=== PATIENT | female | born 1940 | race Caucasian/White ===

== ENCOUNTER 2016-12-31 07:21 | Emergency (ER) | payer MEDICARE, BC ==
[~2016-12-31] VITALS: Ht 170.2 cm; Wt 75.0 kg
[~2016-12-31 07:21] MED LIST: ACET325T33 PO; LEVO100T87 PO; VERA120T2
[2016-12-31] MEDS ORDERED: HYDROmorphONE 1 MG/ML SYG IV STA (08:00)
[2016-12-31] MEDS ORDERED: ONDANSETRON 4 MG INJ IV STA ×2 (08:00→14:59)
[2016-12-31 08:37] LABS: ADD SCAN DIFF NO
[2016-12-31 08:39] LABS: BASOPHILS % 0.4 % (0.0-2.0); EOSINOPHILS # 0.1 10^3/ul (0.0-0.5); EOSINOPHILS % 2.7 % (0.0-7.0); HEMATOCRIT 34.1 % (37.0-47.0); HEMOGLOBIN 11.2 g/dl (12.0-16.0); LYMPHOCYTES # 1.3 10^3/ul (0.8-2.9); LYMPHOCYTES % 25.4 % (15.0-51.0); MEAN CORPUSCULAR HEMOGLOBIN 30.1 pg (29.0-33.0); MEAN CORPUSCULAR HGB CONC 32.8 g/dl (32.0-37.0); MEAN CORPUSCULAR VOLUME 91.7 fl (82.0-101.0); MEAN PLATELET VOLUME 10.2 fl (7.4-10.4); MONOCYTE # 0.3 10^3/ul (0.3-0.9); MONOCYTES % 5.5 % (0.0-11.0); NEUTROPHIL # 3.5 10^3/ul (1.6-7.5); NEUTROPHILS % 65.8 % (39.0-77.0); PLATELET COUNT 155 10^3/UL (140-415); RED BLOOD COUNT 3.72 10^6/ul (4.20-5.40); RED CELL DISTRIBUTION WIDTH 12.7 % (11.5-14.5); WHITE BLOOD COUNT 5.3 10^3/ul (4.8-10.8)
[2016-12-31] MEDS ORDERED: VERA120T2 PO (08:45)
[2016-12-31 08:49] LABS: INR 0.98
[2016-12-31 08:50] LABS: ALBUMIN 3.7 g/dl (3.3-4.9); CHLORIDE 105 mmol/L (97-110); SODIUM 140 mmol/L (135-144)
[2016-12-31 08:51] LABS: POTASSIUM 4.2 mmol/L (3.5-5.1)
[2016-12-31 08:52] LABS: CREATININE 0.71 mg/dl (0.44-1.00)
[2016-12-31 08:53] LABS: ALANINE AMINOTRANSFERASE 34 IU/L (13-69); ALBUMIN/GLOBULIN RATIO 1.15; ALKALINE PHOSPHATASE 77 IU/L (42-121); ANION GAP 15 (8-16); ASPARTATE AMINO TRANSFERASE 41 IU/L (15-46); BILIRUBIN,INDIRECT 0.5 mg/dl (0-1.1); BILIRUBIN,TOTAL 0.5 mg/dl (0.2-1.3); BLOOD UREA NITROGEN 12 mg/dl (7-20); CARBON DIOXIDE 24 mmol/L (21-31); CREATINE KINASE 65 IU/L (23-200); GLUCOSE 143 mg/dl (70-220); TOTAL PROTEIN 6.9 g/dl (6.1-8.1)
[2016-12-31 08:54] LABS: CALCIUM 9.2 mg/dl (8.4-10.2)
[2016-12-31 09:01] LABS: CK-MB 0.33 ng/ml (0.0-2.4)
[2016-12-31 09:10] LABS: TROPONIN-I < 0.012 ng/ml (0.00-0.12)
--- NOTE | 2016-12-31 09:18 | RADRPT ---
PROCEDURE: XR Chest. CLINICAL INDICATION: Chest pain TECHNIQUE: Chest AP portable. COMPARISON: 08/02/2015 FINDINGS: Surgical clips in the left breast. The mediastinal structures are unremarkable. There is calcification of the thoracic aorta (consiste nt with atherosclerosis). There is mild cardiomegaly. The pulmonary vascularity is normal. The geoff ng [place] are unremarkable. No consolidation is identified. The pleural spaces are unremarkable. There are senescent changes of the axial skeleton. IMPRESSION: Calcification of the thoracic aorta (consistent with atherosclerosis) Mild cardiomegaly No active intrathoracic disease RPTAT: HGDB .Gómez Preciado MD, Date Time Electronically viewed and signed by .Gómez Preciado MD, on 12/31/2016 09:18 .B/
--- NOTE | 2016-12-31 09:30 | RADRPT ---
PROCEDURE: CT Abdomen and Pelvis without contrast. CLINICAL INDICATION: Abdominal pain TECHNIQUE: CT of the abdomen and pelvis was performed on a multi-detector scanner without IV contr ast. Coronal and sagittal images were reformatted from the axial data set. One or more of the foll owing dose reduction techniques were used: automated exposure control, adjustment of the mA and/or kV according to patient size, use of iterative reconstruction technique. CTDI = 21.91 mGy. DLP = 12 95.34 mGy-cm. COMPARISON: None. FINDINGS: CT abdomen: The lung bases are clear. The heart size is normal, without pericardial effusion. Coronary arteria l calcification is noted. Liver demonstrates scattered benign cysts. Cholelithiasis is seen withou t evidence for cholecystitis. Biliary tree, pancreas, spleen, adrenal glands and kidneys are unrema rkable. There is no urolithiasis or obstructive uropathy. The stomach is grossly unremarkable. The aorta is of normal caliber. Aortic vascular calcifications are present. There is no retroperit montiel lymphadenopathy. The weston hepatis region is clear. CT pelvis: No bowel obstruction, free intraperitoneal air or abscess is identified. Colonic diverticulosis is noted without diverticulitis. There is no appendicitis or colitis. Urinary bladder is grossly unre markable. Uterus is surgically absent. No pelvic mass, free fluid or lymphadenopathy is identified . The surrounding osseous structures are remarkable for degenerative spondylosis of the spine. No ost eolytic or osteoblastic lesion is detected. IMPRESSION: 1. Cholelithiasis is noted without evidence for cholecystitis. 2. Coronary arterial and aortoiliac atherosclerotic calcifications are present. 3. Colonic diverticulosis is seen without diverticulitis. 4. Uterus is surgically absent. 5. No mass, lymphadenopathy, or focal acute inflammatory process is identified. RPTAT: PP .Montrell Velez MD, MD Date Time Electronically viewed and signed by .Montrell Velez MD, MD on 12/31/2016 09:30 .R/
[2016-12-31] MEDS ORDERED: SOD CHLORIDE 0.9% 1,000 ML IV STA (10:14)
[2016-12-31] MEDS ORDERED: METOCLOPRAMIDE 10 MG INJ IV STA (10:14)
[2016-12-31 11:40] LABS: ADD UMIC YES; URINE BILIRUBIN (Dip) NEGATIVE (NEGATIVE); URINE BLOOD (Dip) NEGATIVE (NEGATIVE); URINE COLOR LT. YELLOW (YELLOW); URINE GLUCOSE (Dip) NEGATIVE (NEGATIVE); URINE KETONES (Dip) NEGATIVE (NEGATIVE); URINE LEUKOCYTE ESTERASE (Dip) 3+ (NEGATIVE); URINE NITRITE (Dip) NEGATIVE (NEGATIVE); URINE TOTAL PROTEIN (Dip) NEGATIVE (NEGATIVE); URINE UROBILINOGEN (Dip) 0.2 E.U./dL (0.1-1.0)
[2016-12-31 11:52] LABS: BACTERIA,URINE FEW; SQUAMOUS EPITHELIAL CELL,UR MODERATE; URINE RBCS NONE SEEN /HPF (0)
[2016-12-31] MEDS ORDERED: SOD CHLORIDE 0.9% 100 ML ONE (14:06)
[2016-12-31] MEDS ORDERED: IODIXANOL LOCM 100 ML BTL ONE ×2 (14:06→14:30)
[2016-12-31] MEDS ORDERED: IODIXANOL LOCM 50 ML BTL ONE (14:08)
--- NOTE | 2016-12-31 15:16 | ERA ---
ER Documentation Chief Complaint Date/Time DATE: 12/31/16 TIME: 15:10 Chief Complaint BROUGHT IN VIA EMS DUE TO CHEST PAIN HPI 76-year-old female with a history of uterine cancer status post hysterectomy, hypertension and hypothyroidism presenting with severe upper abdominal pain since this morning. She states the pain was radiating into her chest and into her back. She has had associated nausea with nonbloody and nonbilious vomiting. She denies any dysuria, hematuria, constipation, diarrhea. No associated fevers or chills. ROS All systems reviewed and are negative except as per history of present illness. Medications Home Meds Reported Medications Verapamil Hcl* (Calan SR*) 120 Mg Tablet.sa, 120 MG PO DAILY, #30 TAB.SA 12/31/16 Levothyroxine Sodium* (Levothyroxine Sodium*) 100 Mcg Tablet, 100 MCG PO AC BREAKFAST, TAB 08/02/15 Discontinued Reported Medications Verapamil Hcl* (Calan SR*) 120 Mg Tablet.sa 07/08/10 Discontinued Scripts Acetaminophen* (Tylenol*) 325 Mg Tablet, 2 TAB PO Q8 Y for PAIN AND OR ELEVATED TEMP, #20 TAB Prov:BRENDON LOVELL MD 08/02/15 Allergies Allergies: Coded Allergies: Penicillins (Verified Allergy, Severe, 12/31/16) Sulfa (Sulfonamide Antibiotics) (Verified Allergy, Unknown, 12/31/16) clarithromycin (Verified Allergy, Unknown, 12/31/16) PMhx/Soc History of Surgery: Yes (lumpectomies. left breast mastectomy, nasal fracture repair, hysterectomy) Anesthesia Reaction: No Hx Neurological Disorder: No Hx Respiratory Disorders: Yes (" SCARRING" OF LUNG. UNKNOWN WHICH SIDE) Hx Cardiac Disorders: Yes (HTN, SVT) Hx Psychiatric Problems: No Hx Miscellaneous Medical Probl: Yes (breast cancer, uterine cancer) Hx Alcohol Use: No Hx Substance Use: No Hx Tobacco Use: Yes Smoking Status: Former smoker Physical Exam Vitals Vital Signs Date Time Temp Pulse Resp B/P Pulse Ox O2 Delivery O2 Flow Rate FiO2 12/31/16 13:30 78 18 129/78 98 Nasal Cannula 2.0 12/31/16 10:00 89 18 110/87 98 Nasal Cannula 2.0 12/31/16 08:42 Nasal Cannula 12/31/16 07:23 98.2 82 18 141/75 98 Physical Exam Const: Appears to be in distress secondary to pain, nontoxic Head: Atraumatic Eyes: Normal Conjunctiva ENT: Normal External Ears, Nose and Mouth. Neck: Full range of motion..~ No meningismus. Resp: Clear to auscultation bilaterally Cardio: Regular rate and rhythm, no murmurs Abd: Soft, epigastric tenderness to palpation with localized guarding, no rebound, non distended. Normal bowel sounds Skin: No petechiae or rashes Back: No midline or flank tenderness Ext: No cyanosis, or edema Neur: Awake and alert Psych: Normal Mood and Affect Result Diagram: 12/31/16 0755 12/31/16 0755 Results 24 hrs Laboratory Tests Test 12/31/16 07:55 12/31/16 11:00 White Blood Count 5.310^3/ul Red Blood Count 3.7210^6/ul Hemoglobin 11.2g/dl Hematocrit 34.1% Mean Corpuscular Volume 91.7fl Mean Corpuscular Hemoglobin 30.1pg Mean Corpuscular Hemoglobin Concent 32.8g/dl Red Cell Distribution Width 12.7% Platelet Count 14636^3/UL Mean Platelet Volume 10.2fl Neutrophils % 65.8% Lymphocytes % 25.4% Monocytes % 5.5% Eosinophils % 2.7% Basophils % 0.4% Nucleated Red Blood Cells % 0.0/100WBC Neutrophils # 3.510^3/ul Lymphocytes # 1.310^3/ul Monocytes # 0.310^3/ul Eosinophils # 0.110^3/ul Basophils # 0.010^3/ul Nucleated Red Blood Cells # 0.010^3/ul Prothrombin Time 13.0Sec Prothrombin Time Ratio 1.0 INR International Normalized Ratio 0.98 Activated Partial Thromboplast Time 20.0Sec Sodium Level 140mmol/L Potassium Level 4.2mmol/L Chloride Level 105mmol/L Carbon Dioxide Level 24mmol/L Anion Gap 15 Blood Urea Nitrogen 12mg/dl Creatinine 0.71mg/dl Glucose Level 143mg/dl Calcium Level 9.2mg/dl Total Bilirubin 0.5mg/dl Direct Bilirubin 0.00mg/dl Indirect Bilirubin 0.5mg/dl Aspartate Amino Transf (AST/SGOT) 41IU/L Alanine Aminotransferase (ALT/SGPT) 34IU/L Alkaline Phosphatase 77IU/L Creatine Kinase 65IU/L Creatine Kinase Index 0.5 Creatinine Kinase MB (Mass) 0.33ng/ml Troponin I < 0.012ng/ml Total Protein 6.9g/dl Albumin 3.7g/dl Globulin 3.20g/dl Albumin/Globulin Ratio 1.15 Lipase 105U/L Urine Color LT. YELLOW Urine Clarity CLEAR Urine pH 7.0 Urine Specific Marion 1.015 Urine Ketones NEGATIVE Urine Nitrite NEGATIVE Urine Bilirubin NEGATIVE Urine Urobilinogen 0.2 E.U./dL Urine Leukocyte Esterase 3+ Urine Microscopic RBC NONE SEEN/HPF Urine Microscopic WBC 5-10/HPF Urine Squamous Epithelial Cells MODERATE Urine Bacteria FEW Urine Hemoglobin NEGATIVE Urine Glucose NEGATIVE% Urine Total Protein NEGATIVE Current Medications Medications (Trade) Dose Ordered Sig/Tia Route PRN Reason Start Time Stop Time Status Last Admin Dose Admin Hydromorphone HCl (Dilaudid) 0.5 mg ONCE STAT IV 12/31/16 08:00 12/31/16 08:01 DC 12/31/16 08:38 Ondansetron HCl 4 mg 4 mg ONCE STAT IV 12/31/16 08:00 12/31/16 08:01 DC 12/31/16 08:37 Sodium Chloride (NS) 1,000 ml @ 1,000 mls/hr Q1H STAT IV 12/31/16 10:14 12/31/16 11:13 DC 12/31/16 10:30 Metoclopramide HCl (Reglan) 10 mg ONCE STAT IV 12/31/16 10:14 12/31/16 10:16 DC 12/31/16 10:30 IV Flush 10 ml 10 ml STK-MED ONCE .ROUTE 12/31/16 14:06 12/31/16 14:07 DC 12/31/16 14:06 Sodium Chloride (NS) 100 ml @ ud STK-MED ONCE .ROUTE 12/31/16 14:06 12/31/16 14:07 DC Iodixanol (Visipaque Locm) 100 ml STK-MED ONCE .ROUTE 12/31/16 14:06 12/31/16 14:07 DC Iodixanol (Visipaque Locm) 50 ml STK-MED ONCE .ROUTE 12/31/16 14:08 12/31/16 14:09 DC Iodixanol (Visipaque Locm) 100 ml STK-MED ONCE .ROUTE 12/31/16 14:30 12/31/16 14:31 DC Ondansetron HCl (Zofran Inj) 4 mg ONCE STAT IV 12/31/16 14:59 12/31/16 15:00 DC 12/31/16 15:08 Procedures/MDM EMERGENT LABS AND DIAGNOSTIC STUDIES: Lab Results above were reviewed and interpreted by me. CBC, CMP, lipase, troponin unremarkable UA with 3+ leuk esterase, however only few WBCs and many squamous cells 12-lead EKG was interpreted by Chantel Salcedo MD: Sinus bradycardia at 47 bpm Normal axis Normal intervals No acute ST or T wave changes suggestive of acute ischemia or STEMI. Radiology Results as interpreted by Radiology below were reviewed by Ivy Salcedo MD: Chest x-ray: Calcification of the thoracic aorta (consistent with atherosclerosis) Mild cardiomegaly No active intrathoracic disease CT abdomen and pelvis: 1. Cholelithiasis is noted without evidence for cholecystitis. 2. Coronary arterial and aortoiliac atherosclerotic calcifications are present. 3. Colonic diverticulosis is seen without diverticulitis. 4. Uterus is surgically absent. 5. No mass, lymphadenopathy, or focal acute inflammatory process is identified. CT Angio C/A/P: Initial Nursing notes reviewed. Previous Medical Records requested via the Electronic Health Record. EMERGENCY DEPARTMENT COURSE / MEDICAL DECISION MAKING: Patient is presenting with upper abdominal pain with nausea and vomiting. She has afebrile with stable vitals. Differential includes but is not limited to biliary colic, biliary obstruction, acute cholecystitis, pancreatitis, hepatitis , lower lobe pneumonia, gastritis, colitis, cardiac pathology, aortic dissection , ureterolithiasis, pyelonephritis. Labs were ordered to evaluate for above and were normal. Chest Xray ordered to evaluate for pneumonia and did not show any acute infiltrate. CT of the abdomen/pelvis was ordered and showed no acute pathology. Hydromorphone IV was given for pain with some symptomatic relief. She was given Zofran and Reglan for her vomiting. IV fluids were also given. Given her persistent symptoms, CTA of the chest abdomen and pelvis were ordered given her age and history of hypertension, and results are still pending. Given her intractable abdominal pain and vomiting, I will admit the patient for IV fluids and serial abdominal exams. Accepting Care Team: Current data and ongoing care discussed. Time: Time of admission Primary Provider: Leonides Consulting: none Outstanding Data: none Departure Diagnosis: Primary Impression: Intractable nausea and vomiting Qualified Code: R11.2 - Intractable vomiting with nausea, unspecified vomiting type Additional Impression: Intractable abdominal pain Condition: BERENICE Cohen MD Dec 31, 2016 15:16
--- NOTE | 2016-12-31 15:25 | RADRPT ---
PROCEDURE: CT Chest, abdomen and pelvis with contrast. CLINICAL INDICATION: 76-year-old male with suspected vascular dissection. TECHNIQUE: Thin section axial, coronal and sagittal images were performed through the abdomen and pelvis without contrast and then following the injection of 100 cc of Isovue 370. Radiation Dose: CTDI: 21.9 and DLP: 1295 One or more of the following dose reduction techniques were used: - Automated exposure control. - Adjustment of the mA and/or kV according to patient size. Use of iterative reconstruction technique. COMPARISON: CT scan of the abdomen pelvis 12/31/2016 performed at 09:22 a.m. FINDINGS: CT Chest: The common carotid arteries are normal. The right left subclavian arteries are unremarka ble. The innominate artery is slightly tortuous and dense vascular calcifications but no dissection . There are vascular calcifications in the aortic arch and descending thoracic aorta. The transverse diameter at the root of the aorta is 6.5 cm x 4 cm AP. There is a bilobed configurat ion of the root of the aorta a small eccentric aneurysm extending off the dorsal left side of the ro ot of the aorta. The heart is normal in size. No pericardial effusion is identified. There are vascular calcifications in the descending thoracic aorta which is normal in size. There a re vascular calcifications in the abdominal aorta. The celiac artery, superior mesenteric artery, r enal arteries and inferior mesenteric artery are patent. There are vascular calcifications in the c ommon iliac arteries. The internal and external iliac arteries are patent with vascular calcificati ons present. The common femoral arteries, profunda femoris and superficial femoral arteries are unr emarkable. No enlarged supraclavicular, superior mediastinal, axillary or hilar lymph nodes are identified. Th ere is a calcified lymph node medial to the azygos vein. The main pulmonary artery and pulmonary artery outflow tracts are normal with no central or segmenta l pulmonary emboli identified. There are vascular calcifications in the left main and descending coronary arteries. CT Abdomen and pelvis : The liver is identified in the right upper quadrant and contains multiple l esions which appear to be the result of cysts. Some of these are too small to fully characterize by CT. Further characterization with ultrasound can be performed if clinically indicated. There are multiple calcifications in the gallbladder consistent with small gallstones. No gallbladd er wall thickening is identified. The pancreas extrahepatic common bile duct are normal. The adrenal glands and kidneys are normal. There is a small midline umbilical hernia. The spleen is normal. There is a small hiatal hernia. The stomach is normal. The small bowel loops have a normal caliber . There are diverticula in the sigmoid colon without evidence of diverticulitis. No free fluid is noted in the pelvis. The uterus is not identified. The ovaries are not identified. No abnormal pelvic mass is present. No inguinal lymph node is identified. No acute bony fracture is noted. There are degenerative changes in both hips and in the thoracic an d lumbosacral spine. No bone metastasis is noted. IMPRESSION: 1. There is aneurysmal dilatation of the root of the aorta which measured up to 6.5 cm transverse b y 4 cm AP with a saccular aneurysm or pseudoaneurysm arising off the dorsal inferior wall of the [place] t of the aorta. The abdominal aorta and its branches reveal no evidence of a aortic aneurysm or diss ection. Atherosclerotic vascular disease is noted. 2. Atherosclerotic vascular disease which also involves the coronary arteries. 3. Calcified azygos lymph node which may be the result of a granulomatous process, perhaps TB. 4. No central or segmental pulmonary emboli. 5. Fatty infiltration of the liver which contains multiple lesions which appear to be cysts. Some are too small to characterize by CT and can be further investigated if clinically indicated with an ultrasound. 6. Cholelithiasis. 7. Status post hysterectomy and salpingo-oophorectomy. 8. Small midline umbilical hernia. 9. Diverticulosis of the sigmoid colon. No evidence of diverticulitis. 10. Osteoarthritis of the thoracic and lumbosacral spine. 11. Moderate size hiatal hernia which is unchanged. RPTAT:AAJJ Physician Fernanda Date Time Electronically viewed and signed by Physician Fernanda on 12/31/2016 15:24 SILVER/
[2016-12-31] MEDS ORDERED: ONDANSETRON 4 MG INJ IV PRN ×2 (15:30→17:00)
[2016-12-31] MEDS ORDERED: ACETAMINOPHEN 325 MG TAB PO PRN ×2 (15:30→17:00)
[2016-12-31] MEDS ORDERED: KETOROLAC 15 MG INJ IV STA (16:27)
[2016-12-31] MEDS ORDERED: LEVOFLOXACIN 500MG/D5W (PMX) 100 ML IVPB SCH (16:30)
[2016-12-31] MEDS ORDERED: DEXTROSE 5%-0.45% NACL 1,000 ML IV SCH (17:00)
--- NOTE | 2016-12-31 18:30 | RADRPT ---
PROCEDURE: Right Upper Quadrant Ultrasound. CLINICAL INDICATION: liver cysts TECHNIQUE: Multiple real-time images were acquired of the patient's right upper quadrant abdomen a nd retroperitoneum utilizing a high resolution transducer. COMPARISON: CTA chest/abdomen/pelvis from 12/31/2016 FINDINGS: The liver measures 16.3 cm, and demonstrates moderately increased echogenicity. The main portal vein is patent with proper directional flow. There is no intrahepatic biliary ductal dilatation. The ext rahepatic common bile duct measures 6 mm. Multiple simple hepatic cysts are identified measuring up to 3.1 cm. There is cholelithiasis. There is no gallbladder wall thickening or pericholecystic fluid. Sonogra phic Edwards's sign is absent. The visualized pancreas is unremarkable. The right kidney measures 10.3 cm and demonstrates normal echotexture. There is no right renal calcu karlo or hydronephrosis. The visualized abdominal aorta and IVC are grossly unremarkable. IMPRESSION: Multiple simple hepatic cysts are identified measuring up to 3.1 cm. Mild hepatomegaly with moderate fatty infiltration. Cholelithiasis without evidence of acute cholecystitis. Normal CBD. RPTAT: EE Physician Jackie Date Time Electronically viewed and signed by Physician Jackie on 12/31/2016 18:30 RA/
--- NOTE | 2016-12-31 18:51 | CONS ---
DATE OF ADMISSION: 12/31/2016 DATE OF CONSULTATION: 12/31/2016 TYPE OF CONSULTATION: Cardiology. REASON FOR CONSULTATION: Chest pain. CHIEF COMPLAINT: Chest pain. HISTORY OF PRESENT ILLNESS: Thank you for this referral. History obtained from the patient, ninfa bahena with Dr. Mcnulty, discussion with physician and staff. This is a very pleasant 76-year-old female with history of "SVT" on medical therapy, verapamil, who came to emergency room. Was brought by the family with above complaint. The patient said that today she had chest pain anteriorly, pressure-l adriana, 5/10, going to her back. She has a known history of probably abdominal aortic aneurysm; raphael zimmerman, the CT of the chest has shown saccular dilatation of the aortic root, which was measured at 6.4 c m. At this point, the patient denies any chest pain or pressure to me. Initially, she was bradycar dic. EKG showed heart rate in the 40s; however, since then heart rate has picked up to 80s now. Sh piedad states that she had a stress nuclear test done at [facility] in 07/2016, which was told it w as normal and was done prior to her gynecological surgeries. PAST MEDICAL HISTORY: History of hypothyroidism, history of abdominal aortic aneurysm, history of p ossible hypertension, history of SVT per her report. MEDICATIONS AT HOME: 1. Verapamil SR 120 mg daily. 2. Levothyroxine. SOCIAL HISTORY: Does not smoke or drink. ALLERGIES: 1. PENICILLIN. 2. SULFA. 3. CLARITHROMYCIN. FAMILY HISTORY: The patient's uncle had coronary artery disease. REVIEW OF SYSTEMS: She denied all other except for above-mentioned. PHYSICAL EXAMINATION: VITAL SIGNS: Temperature 98.2, heart rate of 89, blood pressure 151/81, respiration rate of 18, sat urating 98%. HEENT: Normocephalic, atraumatic. Obese female. Pupils are equal. CARDIOVASCULAR: Regular rate and rhythm. Systolic murmur. PULMONARY: With no wheezes heard. GASTROINTESTINAL: Obese, soft, nontender. EXTREMITIES: With trivial lower extremity edema. NEUROLOGIC: Awake and alert. PSYCHIATRIC: Appears to be calm and pleasant. DIAGNOSTIC DATA: EKG shows marked sinus bradycardia, nonspecific ST abnormalities. LABORATORY DATA: Sodium 140, potassium 4.2, BUN of 12, creatinine 0.71, glucose 141. Troponin less than 0.012. Albumin is 3.7. WBC of 5.3, hemoglobin 11.2, platelet 155. CT of the chest has shown "aneurysmal dilatation at the root of the aorta, which measured up to 6.5 cm transverse by 4 cm AP with saccular aneurysm or pseudoaneurysm arising from off of the dorsal inferior wall of the root of the aorta. Abdominal aorta branches reveal no evidence of aortic aneurysm or dissection." ASSESSMENT AND PLAN: 1. Chest pain syndrome, rule acute coronary syndrome. 2. Saccular aneurysm of the aortic root. 3. Hypertension. 4. History of supraventricular tachycardia, currently in sinus rhythm. 5. Sinus bradycardia, currently stable. 6. Mildly abnormal EKG. 7. Hypothyroidism. RECOMMENDATIONS: I will start the patient on carvedilol. CT surgeon has been consulted. We will r ule out myocardial infarction with serial cardiac enzymes. Stress test apparently has been normal b efore. We will try to get the record of the stress test as well. Will consider CT coronary angiogr am if CT surgery plans to take the patient to the operating room. Continue to monitor her heart rat e. Try to keep the heart rate in the low 50s and blood pressure as low as the patient can tolerate. Dictated By: KESHIA COOLEY MD AV/ATTILA Conf#: [id number] DID#: [id number] CC: NICOLE MCNULTY MD;*End*
[2016-12-31 19:33] VITALS: PULSE 85
[2016-12-31 19:37] VITALS: PULSE 40
[2016-12-31 19:55] VITALS: BP 142/80; PULSE 81; RESP 22
--- NOTE | 2016-12-31 20:18 | HP ---
DATE OF ADMISSION: 12/31/2016 PRESENTING COMPLAINT: Chest pain. HISTORY OF PRESENT ILLNESS: Ms. Edwards is a 76-year-old female in a fairly good state of health wi th a past medical history only of SVT as well as uterine cancer status post hysterectomy as well as hypothyroidism who was in her normal state of health until 3:00 a.m. this morning when she was awoke n from sleep with very uncomfortable, diffuse chest pain, which radiated all across her anterior balb[address] st wall. The patient thought pain was due to gas and took some hyoscine tablets, but pain did not r esolve. Instead, radiated towards her back and affected her severely in her mid back. Pain then be oswaldo radiating downwards to her mid abdominal area, but there was no diarrhea. The pain got worse, m ore severe, and eventually the patient could not take it and she called the ambulance to bring her t o the emergency room. In the emergency room, she had had an episode of vomiting, and so she was med icated for the pain with IV Dilaudid, after which she had a large bout of vomiting and she remains n auseous now, but without any further vomiting. She attributes the vomiting to the pain medication. She has had no fever. She has had no diarrhea. She denies dysuria or hematuria. She denies black stools or blood in her stools. She had a good bowel movement yesterday and had a little one this m orning when her symptoms started, but does not feel constipated. She did have some ham yesterday, w hich is a deviation from her usual diet, in celebration of [place]. Other than that, she cannot real ly note any abnormalities or changes in her diet. PAST MEDICAL HISTORY: Positive for chronic SVT for which she has been on verapamil at 125 mg daily for more than 20 years, history of uterine cancer for which she is status post laparoscopic hysterec susanna back in 07/2016 prior to which she reports having a normal stress test. She also has chronic a bdominal aneurysm that she states measures in the 4 cm and a history of hypothyroidism for which she is on Synthroid 100 mcg daily. PAST SURGICAL HISTORY: Summarized above. ALLERGIES: PENICILLIN, SULFA, TETRACYCLINE, AND BIAXIN. REVIEW OF SYSTEMS: A 12-point review of systems and pertinent findings are as noted in HPI. FAMILY HISTORY: Positive for diabetes mellitus. SOCIAL HISTORY: The patient denies tobacco, alcohol, or illicit drug use. PHYSICAL EXAMINATION: VITAL SIGNS: Temperature 98.2, pulse 78, respirations 18, blood pressure 129/70, saturations 98% on oxygen via nasal cannula at 2 liters a minute. ELECTROCARDIOGRAM: She had a sinus bradycardia without ST elevations of or ____ depression. HEENT: Head is normocephalic. Pupils are equal and reactive. Mucous membranes were quite dry. Po sterior pharynx was clear of exudate. NECK: Supple without JVD or adenopathy. CHEST: Clear to auscultation. CARDIOVASCULAR: S1 and S2. No murmurs. ABDOMEN: Soft, nontender, nondistended, normoactive bowel sounds. EXTREMITIES: She had no lower extremity edema. NEUROLOGIC: She had no focal deficits. SKIN: Devoid of rash and jaundice. LABORATORY VALUES: Her complete metabolic profile was completely normal. First troponin negative. Lipase level normal. Hematology: Hemoglobin was 11, hematocrit was 34. Other than that, she had normal indices and the rest of her profile was unremarkable. Coag profile was normal. Urine was po sitive for UTI with 3+ esterase, 5 to 10 white cells, few bacteria. IMAGING: She had multiple imaging studies. 1. Chest x-ray shows calcification of the thoracic aorta consistent with atherosclerosis without ac tive intrathoracic disease. 2. CT of the abdomen and pelvis that showed cholelithiasis without cholecystitis, coronary artery c alcifications, diverticulosis, hysterectomy, and no acute mass or inflammatory process. 3. She had a CT of the abdomen, chest, and pelvis with IV contrast that showed aneurysmal dilatatio n of the root of the aorta measuring up to 6.5 x 4 without evidence of dissection, atherosclerotic d isease, fatty liver, which contains multiple lesions which appear to be cysts, status post hysterect marivel and salpingo-oophorectomy, small midline umbilical hernia, diverticulosis of the colon without d iverticulitis, osteoarthritis, and chronic moderate size hiatal hernia. IMPRESSION: A 76-year-old female who had come in because of diffuse anterior chest wall pain radiat ing to her back, now with the followin. Chest pain, rule out acute coronary syndrome. 2. Chronic supraventricular tachycardia, which is well controlled. 3. Chronic abdominal aortic aneurysm with new finding of thoracic aortic aneurysm at the root of th e aorta measuring 6.5 x 4 cm. 4. Chronic hypothyroidism. 5. Recent diagnosis of uterine cancer, status post total hysterectomy and salpingo-oophorectomy, , with recent visit postop status post Pap smear of stump. 6. High blood pressure with good control. 7. Probable urinary tract infection, which could lead to her symptoms. 8. Nausea, vomiting, which could be secondary to urinary tract infection. PLAN: 1. The patient to be admitted to telemetry floor. We will rule out an acute coronary syndrome. 2. Will get cardiology as well as cardiothoracic consultation, continue current calcium channel blo cker regimen. Bradycardia is good for patient. We will also push for improved blood pressure contr ol for systolics 120 or less and diastolic 80 or less. 3. Commence empiric antibiotics and send for urine cultures. 4. Resume home Synthroid and check a TSH to assess control. 5. Supportive care will include antiemetics, antipyretics as indicated, and pain control. 6. Continue supportive care. This plan of care has been discussed with patient, questions have been answered. We will also get a n ultrasound of her liver to evaluate this and cholelithiasis. Prophylaxis will be with Pepcid and SCDs. Dictated By: NICOLE MCNULTY MD, BA/ATTILA Conf#: [id number] DID#: [id number]
[2016-12-31 20:23] VITALS: PULSE 80
[2016-12-31] MEDS ORDERED: METOCLOPRAMIDE 10 MG INJ IV PRN (21:00)
[2016-12-31] MEDS: DOCUSATE SODIUM 100 MG CAP PO SCH (21:00)
[2016-12-31] MEDS ORDERED: morphine 4 MG/ML VIAL IV PRN (21:00)
[2016-12-31] MEDS ORDERED: HYDROmorphONE 1 MG/ML SYG IV PRN ×2 (21:30)
[2017-01-01] VITALS (11 sets, daily range): BP systolic 121–141; BP diastolic 60–72; PULSE 50–81; RESP 18–20; Ht 170.2 cm; Wt 75.0 kg
--- NOTE | 2017-01-01 01:01 | CONS ---
DATE OF ADMISSION: 12/31/2016 DATE OF CONSULTATION: REASON FOR CONSULTATION: Ascending aortic aneurysm. 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 Patient tells me the discomfort was low in the chest close to the xiphoid, radiatin g to the back and this has been accompanied with nausea and vomiting. No tearing pain, no pressure type pain. The patient's workup included a CAT scan of the chest which I have personally reviewed, which shows a 6.5 ascending aortic aneurysm at the root with a possible saccular aneurysm component of it. The aneurysm extends all the way up to the site of the innominate artery. No signs of abdom inal aortic aneurysm based on the CAT scan. The patient tells me that his chest pain is now complet rafael subsided; however, she has pain below the xiphoid associated with nausea and vomiting. PAST MEDICAL HISTORY: Significant for hypertension, SVT, hypothyroidism, neuropathy. PAST SURGICAL HISTORY: Salpingo-oophorectomy. ALLERGIES: PENICILLIN, SULFA, TERRAMYCIN. MEDICATIONS: At home include: 1. Verapamil. 2. Levothyroxine. PAST MEDICAL HISTORY: SVT`. REVIEW OF SYSTEMS: GENITOURINARY: No upper or lower GI bleeding, nausea, vomiting, constipation, diarrhea. GENITOURINARY: No hematuria or dysuria. SKIN: No skin rashes, moles. PHYSICAL EXAMINATION: GENERAL APPEARANCE: The patient is awake and alert, responds appropriately. CARDIAC: No chest pain reported. VITAL SIGNS: Blood pressure is 142/80, pulse is 81, respirations 18, saturations 97% on 2 liters of oxygen, temperature is 98.3. HEENT: Normocephalic, atraumatic. PERRLA. NECK: Supple. No JVD, no carotid bruits. CARDIOVASCULAR: Normal S1, S2. No murmurs, gallops or rubs. LUNGS: Clear. ABDOMEN: Soft. EXTREMITIES: Warm. LABORATORY VALUES: Significant for a white count of 5.3, hemoglobin 11.2, platelet count 156. Norm al coagulation factors and a creatinine of 0.71. IMPRESSION: 1. Ascending aortic aneurysm involving the root, 6.5 cm. 2. Nausea and vomiting of unknown etiology. 3. Chest pain, which is now resolved. 4. Hypertension. 5. Hypothyroidism. 6. Neuropathy. RECOMMENDATIONS: This is a patient who is a candidate to undergo ascending aortic repair. If the c hest pain has resolved, this can be done after workup which should include tests to rule out any sig nificant coronary artery disease. We will also need to get workup of her nausea and vomiting. The patient also need an echocardiogram to evaluate heart and aortic valve to rule out aortic insufficie ncy. Discussed with the patient. Will discuss with the referring physicians. Dictated By: GARCIA CAE/ATTILA Conf#: [id number] DID#: [id number]
[2017-01-01] MEDS ORDERED: PANTOPRAZOLE (EC) 40 MG TAB PO SCH (06:00)
[2017-01-01 06:58] LABS: ADD SCAN DIFF NO
[2017-01-01] MEDS ORDERED: LEVOTHYROXINE 100 MCG TAB PO SCH (07:00)
--- NOTE | 2017-01-01 07:00 | RADRPT ---
Echocardiogram Report Patient Name: MILAGROS BOTELLO Gender: Female Date: 1940 Study Date: 31-Dec-2016 Loaders: [facility] Location: [facility] Ref. Physician: NICOLE MCNULTY Quality: Good Procedures: Transthoracic echocardiogram with complete 2D, M-Mode, and doppler examination. Indications: Chest Pain, AORTIC ROOT DILATION. 2D/M Mode Doppler Measurement Value Normal Ranges Measurement Value Normal Ranges LVIDd 2D 5.3 3.5 - 5.6 cm AV Peak Jesus 1.6 m/sec LVIDs 2D 3.6 2.1 - 4.1 cm AV Peak PG 10.0 mmHg LVPWd 2D 1.2 0.6 - 1.1 cm LVOT Peak Jesus 0.9 m/sec IVSd 2D 1.2 0.6 - 1.1 cm LVOT Peak PG 3.2 mmHg AoR Diam 2D 3.2 2.0 - 3.7 cm MV E Peak Jesus 0.7 m/sec EDV 2D 133.3 cm3 MV A Peak Jesus 1.1 m/sec ESV 2D 45.2 cm3 MV E/A 0.6 MV Decel Time 161 msec MV Decel Marathon 5 MV E/A 0.6 Findings Left Ventricle: Normal left ventricular systolic function. Left ventricular wall thickness upper limits of normal. Mild enlargement of left ventricle cavity. Ejection fraction is visually estimated at 60 %. Tissue Doppler/Mitral Doppler indices are consistent with impaired relaxation (Stage I diastolic dysfunction). Right Ventricle: Normal right ventricular systolic function. Mild enlargement of right ventricle. Left Atrium: The left atrium is normal in size. Right Atrium: The right atrium is normal in size. RA Pressure=3. Mitral Valve: Mild mitral leaflet calcification. Trace mitral regurgitation. Aortic Valve: Aortic cusps appear mildly calcified. Trace aortic valve regurgitation. Tricuspid Valve: Tricuspid valve not well visualized. There is trace tricuspid regurgitation. Pulmonic Valve: There is trace pulmonic regurgitation. Pericardium: Normal pericardium with no significant pericardial effusion. Aorta: Ascending aorta is mildly dilated. Ascending Aorta 4.50 cm. IVC: Normal size and normal respiratory collapse consistent with normal right atrial pressure. Conclusions 1.Normal left ventricular systolic function. Left ventricular wall thickness upper limits of normal. Mild enlargement of left ventricle cavity. Ejection fraction is visually estimated at 60 %. Tissue Doppler/Mitral Doppler indices are consistent with impaired relaxation (Stage I diastolic dysfunction). 2.Mild mitral leaflet calcification. Trace mitral regurgitation. 3.Aortic cusps appear mildly calcified. Trace aortic valve regurgitation. 4.Tricuspid valve not well visualized. There is trace tricuspid regurgitation. Electronically Signed By: Cameron Bettencourt 31-Dec-2016 19:40:29 -0700 Patient Name: MILAGROS BOTELLO Study Date: 31-Dec-2016 [id number]
[2017-01-01 07:03] LABS: BASOPHILS % 0.1 % (0.0-2.0); EOSINOPHILS % 0.3 % (0.0-7.0); HEMATOCRIT 34.8 % (37.0-47.0); HEMOGLOBIN 11.4 g/dl (12.0-16.0); LYMPHOCYTES # 1.7 10^3/ul (0.8-2.9); LYMPHOCYTES % 25.3 % (15.0-51.0); MEAN CORPUSCULAR HEMOGLOBIN 30.2 pg (29.0-33.0); MEAN CORPUSCULAR HGB CONC 32.8 g/dl (32.0-37.0); MEAN CORPUSCULAR VOLUME 92.3 fl (82.0-101.0); MEAN PLATELET VOLUME 9.6 fl (7.4-10.4); MONOCYTE # 0.4 10^3/ul (0.3-0.9); MONOCYTES % 6.2 % (0.0-11.0); NEUTROPHIL # 4.6 10^3/ul (1.6-7.5); NEUTROPHILS % 67.7 % (39.0-77.0); PLATELET COUNT 189 10^3/UL (140-415); RED BLOOD COUNT 3.77 10^6/ul (4.20-5.40); RED CELL DISTRIBUTION WIDTH 12.8 % (11.5-14.5); WHITE BLOOD COUNT 6.8 10^3/ul (4.8-10.8)
[2017-01-01 07:08] LABS: POTASSIUM 4.2 mmol/L (3.5-5.1)
[2017-01-01 07:10] LABS: CREATININE 0.74 mg/dl (0.44-1.00)
[2017-01-01 07:11] LABS: CALCIUM 8.9 mg/dl (8.4-10.2)
[2017-01-01 07:53] LABS: CREATINE KINASE 61 IU/L (23-200)
[2017-01-01 07:54] LABS: ALBUMIN 3.5 g/dl (3.3-4.9); BILIRUBIN,INDIRECT 0.9 mg/dl (0-1.1); BILIRUBIN,TOTAL 0.9 mg/dl (0.2-1.3); CHOL/HDL RATIO 3.9 RATIO; TOTAL PROTEIN 6.6 g/dl (6.1-8.1)
[2017-01-01 08:04] LABS: CK-MB 0.66 ng/ml (0.0-2.4)
[2017-01-01 08:05] LABS: THYROID STIMULATING HORMONE 1.59 MIU/L (0.465-4.680)
[2017-01-01 08:20] LABS: TROPONIN-I < 0.012 ng/ml (0.00-0.12)
[2017-01-01] MEDS: DOCUSATE SODIUM 100 MG CAP PO SCH (08:35)
[2017-01-01] MEDS: VERAPAMIL (SR) 120 MG TAB PO SCH (08:36)
[2017-01-01] MEDS ORDERED: LEVO250T35 PO (13:02)
--- NOTE | 2017-01-01 13:15 | DS ---
Date/Time of Note Date/Time of Note DATE: 01/01/17 TIME: 13:03 Discharge Summary Admission/Discharge Info Admit Date/Time Dec 31, 2016 at 15:19 Discharge Date/Time Final Diagnosis 1. Abdominal pain, resolved 2. Ascending aortic aneurysm, follow up with vascular 3. Chronic abdominal aortic aneurysm, follow up with vascular 4. Hypertension, controlled 5. UTI, on levaquin 6. Uterine cancer s/p hysterectomy Patient Condition: Stable Procedures [place] [id number] Radiology Main Line: [phone] DIAGNOSTIC IMAGING REPORT Patient: MILAGROS BOTELLO : 1940 Age: 76 Sex: F MR #: [id number] DOS: 12/31/16 0000 Ordering MD: BERENICE GUERIN MD Location: E/R Room/Bed: PROCEDURE: CT Chest, abdomen and pelvis with contrast. CLINICAL INDICATION: 76-year-old male with suspected vascular dissection. TECHNIQUE: Thin section axial, coronal and sagittal images were performed through the abdomen and pelvis without contrast and then following the injection of 100 cc of Isovue 370. Radiation Dose: CTDI: 21.9 and DLP: 1295 One or more of the following dose reduction techniques were used: - Automated exposure control. - Adjustment of the mA and/or kV according to patient size. Use of iterative reconstruction technique. COMPARISON: CT scan of the abdomen pelvis 12/31/2016 performed at 09:22 a.m. FINDINGS: CT Chest: The common carotid arteries are normal. The right left subclavian arteries are unremarkable. The innominate artery is slightly tortuous and dense vascular calcifications but no dissection. There are vascular calcifications in the aortic arch and descending thoracic aorta. The transverse diameter at the root of the aorta is 6.5 cm x 4 cm AP. There is a bilobed configuration of the root of the aorta a small eccentric aneurysm extending off the dorsal left side of the root of the aorta. The heart is normal in size. No pericardial effusion is identified. There are vascular calcifications in the descending thoracic aorta which is normal in size. There are vascular calcifications in the abdominal aorta. The celiac artery, superior mesenteric artery, renal arteries and inferior mesenteric artery are patent. There are vascular calcifications in the common iliac arteries. The internal and external iliac arteries are patent with vascular calcifications present. The common femoral arteries, profunda femoris and superficial femoral arteries are unremarkable. No enlarged supraclavicular, superior mediastinal, axillary or hilar lymph nodes are identified. There is a calcified lymph node medial to the azygos vein. The main pulmonary artery and pulmonary artery outflow tracts are normal with no central or segmental pulmonary emboli identified. There are vascular calcifications in the left main and descending coronary arteries. CT Abdomen and pelvis : The liver is identified in the right upper quadrant and contains multiple lesions which appear to be the result of cysts. Some of these are too small to fully characterize by CT. Further characterization with ultrasound can be performed if clinically indicated. There are multiple calcifications in the gallbladder consistent with small gallstones. No gallbladder wall thickening is identified. The pancreas extrahepatic common bile duct are normal. The adrenal glands and kidneys are normal. There is a small midline umbilical hernia. The spleen is normal. There is a small hiatal hernia. The stomach is normal. The small bowel loops have a normal caliber. There are diverticula in the sigmoid colon without evidence of diverticulitis. No free fluid is noted in the pelvis. The uterus is not identified. The ovaries are not identified. No abnormal pelvic mass is present. No inguinal lymph node is identified. No acute bony fracture is noted. There are degenerative changes in both hips and in the thoracic and lumbosacral spine. No bone metastasis is noted. IMPRESSION: 1. There is aneurysmal dilatation of the root of the aorta which measured up to 6.5 cm transverse by 4 cm AP with a saccular aneurysm or pseudoaneurysm arising off the dorsal inferior wall of the root of the aorta. The abdominal aorta and its branches reveal no evidence of a aortic aneurysm or dissection. Atherosclerotic vascular disease is noted. 2. Atherosclerotic vascular disease which also involves the coronary arteries. 3. Calcified azygos lymph node which may be the result of a granulomatous process, perhaps TB. 4. No central or segmental pulmonary emboli. 5. Fatty infiltration of the liver which contains multiple lesions which appear to be cysts. Some are too small to characterize by CT and can be further investigated if clinically indicated with an ultrasound. 6. Cholelithiasis. 7. Status post hysterectomy and salpingo-oophorectomy. 8. Small midline umbilical hernia. 9. Diverticulosis of the sigmoid colon. No evidence of diverticulitis. 10. Osteoarthritis of the thoracic and lumbosacral spine. 11. Moderate size hiatal hernia which is unchanged. RPTAT:AAJJ Marshall Ernst Physician Date Time Electronically viewed and signed by Marshall Ernst Physician on 12/31/2016 15:24 JM/ CC: BERENICE GUERIN MD Hospital Course 68 years old obese female came in with upper abdominal pain that extended up to the frontal chest with some nausea. She vomited in the hospital once. CT scan and abdominal ultrasound show gallstones but no evidence of cholecystitis. Abdominal and nausea resolved. Follow up with PCP. Patient had a negative coronary angiography about two years ago with only about 40% lesion at that time. No further cardiac work up needed at this time. CT scan of chest ind a aortic root aneurysm with transverse diameter of 6.5 cm and AP diameter of 4 cm. I will have her follow up with her own vascular surgeon that she has an appointment with for this issue. Home Meds Active Scripts Levofloxacin* (Levaquin*) 250 Mg Tablet, 250 MG PO DAILY for 3 Days, TAB Prov:YULY HOPE MD 01/01/17 Reported Medications Verapamil Hcl* (Calan SR*) 120 Mg Tablet.sa, 120 MG PO DAILY, #30 TAB.SA 12/31/16 Levothyroxine Sodium* (Levothyroxine Sodium*) 100 Mcg Tablet, 100 MCG PO AC BREAKFAST, TAB 08/02/15 Discontinued Reported Medications Verapamil Hcl* (Calan SR*) 120 Mg Tablet.sa 07/08/10 Discontinued Scripts Acetaminophen* (Tylenol*) 325 Mg Tablet, 2 TAB PO Q8 Y for PAIN AND OR ELEVATED TEMP, #20 TAB Prov:BRENDON LOVELL MD 08/02/15 Follow-up Plan vascular surgery in two weeks PCP in one week Pending Labs Laboratory Tests Test 01/01/17 06:05 White Blood Count 6.810^3/ul (4.8-10.8) Red Blood Count 3.7710^6/ul (4.20-5.40) Hemoglobin 11.4g/dl (12.0-16.0) Hematocrit 34.8% (37.0-47.0) Mean Corpuscular Volume 92.3fl (82.0-101.0) Mean Corpuscular Hemoglobin 30.2pg (29.0-33.0) Mean Corpuscular Hemoglobin Concent 32.8g/dl (32.0-37.0) Red Cell Distribution Width 12.8% (11.5-14.5) Platelet Count 69393^3/UL (140-415) Mean Platelet Volume 9.6fl (7.4-10.4) Neutrophils % 67.7% (39.0-77.0) Lymphocytes % 25.3% (15.0-51.0) Monocytes % 6.2% (0.0-11.0) Eosinophils % 0.3% (0.0-7.0) Basophils % 0.1% (0.0-2.0) Nucleated Red Blood Cells % 0.0/100WBC (0.0-0.0) Neutrophils # 4.610^3/ul (1.6-7.5) Lymphocytes # 1.710^3/ul (0.8-2.9) Monocytes # 0.410^3/ul (0.3-0.9) Eosinophils # 0.010^3/ul (0.0-0.5) Basophils # 0.010^3/ul (0.0-0.1) Nucleated Red Blood Cells # 0.010^3/ul (0.0-0.0) Sodium Level 142mmol/L (135-144) Potassium Level 4.2mmol/L (3.5-5.1) Chloride Level 106mmol/L (97-110) Carbon Dioxide Level 27mmol/L (21-31) Anion Gap 13 (8-16) Blood Urea Nitrogen 10mg/dl (7-20) Creatinine 0.74mg/dl (0.44-1.00) Glucose Level 117mg/dl (70-220) Hemoglobin A1c 5.5% (0-5.9) Calcium Level 8.9mg/dl (8.4-10.2) Magnesium Level 2.0mg/dl (1.7-2.5) Total Bilirubin 0.9mg/dl (0.2-1.3) Direct Bilirubin 0.00mg/dl (0.00-0.20) Indirect Bilirubin 0.9mg/dl (0-1.1) Aspartate Amino Transf (AST/SGOT) 131IU/L (15-46) Alanine Aminotransferase (ALT/SGPT) 119IU/L (13-69) Alkaline Phosphatase 97IU/L (42-121) Creatine Kinase 61IU/L (23-200) Creatine Kinase Index 1.1 Creatinine Kinase MB (Mass) 0.66ng/ml (0.0-2.4) Troponin I < 0.012ng/ml (0.00-0.12) Total Protein 6.6g/dl (6.1-8.1) Albumin 3.5g/dl (3.3-4.9) Triglycerides Level 96mg/dl (0-149) Cholesterol Level 222mg/dl (100-200) LDL Cholesterol, Calculated 147mg/dl HDL Cholesterol 56mg/dl (33-92) Cholesterol/HDL Ratio 3.9RATIO Thyroid Stimulating Hormone (TSH) 1.590MIU/L (0.465-4.680) Free Thyroxine 0.98ng/dl (0.78-2.44) YULY HOPE MD Jan 01, 2017 13:14
--- NOTE | 2017-01-01 16:34 | PN ---
DATE: 01/01/2017 CARDIOLOGY FOLLOWUP SUBJECTIVE: Discussed with the staff, discussed with ____. The patient with no more chest pain or pressure, no abdominal pain. Feeling better today. Wants to go home. MEDICATIONS: Reviewed, which include verapamil 120. Patient has refused the Coreg. PHYSICAL EXAMINATION: VITAL SIGNS: Temperature 99, heart rate of 56, blood pressure 137/65, respiration rate of 20, satur ating 96%. HEENT: Normocephalic, atraumatic, obese, in no acute distress. Pupils are equal. CARDIOVASCULAR: Regular rate and rhythm, systolic murmur. PULMONARY: With no wheezes anteriorly. GASTROINTESTINAL: Soft. No rebound or guarding. EXTREMITIES: ____extremity edema. NEUROLOGIC: Awake and alert. PSYCHIATRIC: Calm, pleasant. LABORATORY: WBC of 6.8, hemoglobin 11.4, platelets 189. Sodium 142, potassium 4.2, BUN of 10, crea tinine 0.74, glucose 117. ALT of 190, AST of 131. Cholesterol 222 with LDL 147, HDL 56. TSH 1.59. Echocardiogram was personally reviewed, which shows ejection fraction of 60%. There is grade I di astolic dysfunction. Ascending aorta was measured around 4.5 cm, which is dilated. 1. Chest pain with ____discomfort. 2. Dilated aortic root. 3. Hypertension. 4. History of hypothyroidism. 5. Abnormal liver function tests. 6. Cholelithiasis. 7. Supraventricular tachycardia. 8. Abnormal EKG. 9. Thyroid disorder. RECOMMENDATIONS: The patient has refused the beta mojgan which was recommended. She states to me now that she has had a coronary angiogram 2 years ago at [facility] and ____less than 40% s tenosis. We will hold off on any ischemic workup at this point. Further recommendation as per CT s urgery. Dictated By: KESHIA ORTIZ/ATTILA Conf#: [id number] DID#: [id number]
[2017-01-01] MEDS ORDERED: LEVOFLOXACIN 500MG/D5W (PMX) 100 ML IVPB ONE (18:00)
--- NOTE | 2017-01-01 18:53 | PN ---
Date/Time of Note Date/Time of Note DATE: 01/01/17 TIME: 18:52 Assessment/Plan Lines/Catheters IV [facility] Type [facility]): Peripheral IV Assessment/Plan Chief Complaint/Hosp Course IMPRESSION: 1. Ascending aortic aneurysm involving the root, 6.5 cm. 2. Nausea and vomiting of unknown etiology. 3. Chest pain, which is now resolved. 4. Hypertension. 5. Hypothyroidism. 6. Neuropathy. RECOMMENDATIONS: This is a patient who is a candidate to undergo ascending aortic repair. If the chest pain has resolved, this can be done after workup which should include tests to rule out any significant coronary artery disease. We will also need to get workup of her nausea and vomiting. The patient also need an echocardiogram to evaluate heart and aortic valve to rule out aortic insufficiency. Discussed with the patient. Will discuss with Dr Bettencourt. Problems: Subjective 24 Hr Interval Summary Constitutional: improved Pain Control: mild Exam/Review of Systems Vital Signs Vitals Vital Signs Date Time Temp Pulse Resp B/P Pulse Ox O2 Delivery O2 Flow Rate FiO2 01/01/17 16:00 81 01/01/17 15:57 98.1 20 131/64 96 12/31/16 19:55 Room Air 12/31/16 19:02 2.0 Intake and Output 12/31/16 12/31/16 01/01/17 15:00 23:00 07:00 Intake Total 1100 ml 0 ml Balance 1100 ml 0 ml Exam ENMT: mucosa pink and moist, nl external ears & nose, nl lips & teeth, nl nasal mucosa & septum Neck: non-tender, supple Respiratory: clear to auscultation, normal air movement Cardiovascular: nl pulses, regular rate and rhythm Results Result Diagram: 01/01/17 0601/01/17604 GRACIA GARZA MD Jan 01, 2017 18:53
[2017-01-02 00:10] VITALS: BP 155/72; PULSE 62; RESP 20
[2017-01-02 03:00] VITALS: BP 144/78; PULSE 66; RESP 20
[2017-01-02 05:16] LABS: ADD SCAN DIFF NO
[2017-01-02 05:31] LABS: BASOPHILS % 0.3 % (0.0-2.0); EOSINOPHILS # 0.1 10^3/ul (0.0-0.5); EOSINOPHILS % 2.4 % (0.0-7.0); HEMATOCRIT 35.1 % (37.0-47.0); HEMOGLOBIN 11.8 g/dl (12.0-16.0); LYMPHOCYTES # 1.8 10^3/ul (0.8-2.9); LYMPHOCYTES % 30.5 % (15.0-51.0); MEAN CORPUSCULAR HGB CONC 33.6 g/dl (32.0-37.0); MEAN CORPUSCULAR VOLUME 92.1 fl (82.0-101.0); MEAN PLATELET VOLUME 9.5 fl (7.4-10.4); MONOCYTE # 0.4 10^3/ul (0.3-0.9); MONOCYTES % 6.8 % (0.0-11.0); NEUTROPHIL # 3.5 10^3/ul (1.6-7.5); NEUTROPHILS % 59.7 % (39.0-77.0); PLATELET COUNT 189 10^3/UL (140-415); RED BLOOD COUNT 3.81 10^6/ul (4.20-5.40); RED CELL DISTRIBUTION WIDTH 12.8 % (11.5-14.5); WHITE BLOOD COUNT 5.9 10^3/ul (4.8-10.8)
[2017-01-02 05:34] LABS: ALBUMIN 3.6 g/dl (3.3-4.9); POTASSIUM 4.2 mmol/L (3.5-5.1)
[2017-01-02 05:36] LABS: CREATININE 0.78 mg/dl (0.44-1.00)
[2017-01-02 05:37] LABS: ALBUMIN/GLOBULIN RATIO 1.05; BILIRUBIN,INDIRECT 1.1 mg/dl (0-1.1); BILIRUBIN,TOTAL 1.1 mg/dl (0.2-1.3)
[2017-01-02] MEDS: VERAPAMIL (SR) 120 MG TAB PO SCH (09:00)
--- NOTE | 2017-01-02 10:31 | PN ---
DATE: 01/02/2017 CARDIOLOGY FOLLOWUP SUBJECTIVE: Discussed with the staff. The patient denies any chest pain or pressure to me. Denies having abdominal pain to me. Wants to go home. She is very eager to go home. In fact, says she h as an appointment with her regional climate change analyst tomorrow and she is going to make an appointment with Dr. Ryder velasquez next week. MEDICATIONS: Reviewed. PHYSICAL EXAMINATION: VITAL SIGNS: Temperature 98, heart rate of 66, blood pressure 140/78, respiration rate of 20, satur ating 96%. HEENT: Normocephalic, atraumatic. Obese female in no acute distress. Pupils are equal. CARDIOVASCULAR: Regular rate and rhythm, systolic murmur, grade I. PULMONARY: With no wheezes, no rhonchi. GASTROINTESTINAL: Soft. No rebound, no guarding. No tenderness. EXTREMITIES: With trivial edema. NEUROLOGIC: Awake and alert. PSYCHIATRIC: Calm, pleasant. LABORATORY: WBC of 5.9, hemoglobin 11.8, platelet 189. Sodium 142, potassium 4.2, BUN of 10, creat inine 0.78, glucose 100. AST of 87. ALT of 95. ASSESSMENT AND PLAN: 1. Dilated aortic root. Follow up with CT surgery recommendation. 2. Chest pain, most likely related to above and possibly related to a GI cause. The patient said sh piedad has had a coronary angiogram 2 years ago was normal and a stress test 6 months ago was normal. Fo llow up with her regional climate change analyst as an outpatient. 3. Hypertension. Verapamil. Has refused beta mojgan. 4. History of hypothyroidism, on replacement. 5. Elevated LFTs, has come down today. Cholelithiasis. 6. History of SVT, currently stable. 7. Abnormal EKG, currently stable. RECOMMENDATIONS: We will continue with verapamil. The patient has refused statins says that it ca used her severe myalgia. Gastrointestinal workup as per internal medicine. Follow up with CT surge ry recommendation. Discharge planning once okay from cardiothoracic standpoint. Dictated By: KESHIA COOLEY MD AV/ATTILA Conf#: [id number] DID#: [id number] CC: NICOLE MCNULTY MD;*EndCC*
--- NOTE | 2017-01-02 10:44 | DS ---
Date/Time of Note Date/Time of Note DATE: 01/02/17 TIME: 10:37 Discharge Summary Admission/Discharge Info Admit Date/Time Dec 31, 2016 at 15:18 Discharge Date/Time Final Diagnosis 1. Abdominal pain, Gallstone related, follow up with PCP 2. Ascending aortic aneurysm, follow up with vascular 3. Chronic abdominal aortic aneurysm, follow up with vascular 4. Hypertension, controlled 5. UTI, on levaquin 6. Uterine cancer s/p hysterectomy Procedures [place] [id number] Radiology Main Line: [phone] DIAGNOSTIC IMAGING REPORT Patient: MILAGROS BOTELLO : 1940 Age: 76 Sex: F MR #: [id number] DOS: 12/31/16 0000 Ordering MD: BERENICE GUERIN MD Location: E/R Room/Bed: PROCEDURE: CT Chest, abdomen and pelvis with contrast. CLINICAL INDICATION: 76-year-old male with suspected vascular dissection. TECHNIQUE: Thin section axial, coronal and sagittal images were performed through the abdomen and pelvis without contrast and then following the injection of 100 cc of Isovue 370. Radiation Dose: CTDI: 21.9 and DLP: 1295 One or more of the following dose reduction techniques were used: - Automated exposure control. - Adjustment of the mA and/or kV according to patient size. Use of iterative reconstruction technique. COMPARISON: CT scan of the abdomen pelvis 12/31/2016 performed at 09:22 a.m. FINDINGS: CT Chest: The common carotid arteries are normal. The right left subclavian arteries are unremarkable. The innominate artery is slightly tortuous and dense vascular calcifications but no dissection. There are vascular calcifications in the aortic arch and descending thoracic aorta. The transverse diameter at the root of the aorta is 6.5 cm x 4 cm AP. There is a bilobed configuration of the root of the aorta a small eccentric aneurysm extending off the dorsal left side of the root of the aorta. The heart is normal in size. No pericardial effusion is identified. There are vascular calcifications in the descending thoracic aorta which is normal in size. There are vascular calcifications in the abdominal aorta. The celiac artery, superior mesenteric artery, renal arteries and inferior mesenteric artery are patent. There are vascular calcifications in the common iliac arteries. The internal and external iliac arteries are patent with vascular calcifications present. The common femoral arteries, profunda femoris and superficial femoral arteries are unremarkable. No enlarged supraclavicular, superior mediastinal, axillary or hilar lymph nodes are identified. There is a calcified lymph node medial to the azygos vein. The main pulmonary artery and pulmonary artery outflow tracts are normal with no central or segmental pulmonary emboli identified. There are vascular calcifications in the left main and descending coronary arteries. CT Abdomen and pelvis : The liver is identified in the right upper quadrant and contains multiple lesions which appear to be the result of cysts. Some of these are too small to fully characterize by CT. Further characterization with ultrasound can be performed if clinically indicated. There are multiple calcifications in the gallbladder consistent with small gallstones. No gallbladder wall thickening is identified. The pancreas extrahepatic common bile duct are normal. The adrenal glands and kidneys are normal. There is a small midline umbilical hernia. The spleen is normal. There is a small hiatal hernia. The stomach is normal. The small bowel loops have a normal caliber. There are diverticula in the sigmoid colon without evidence of diverticulitis. No free fluid is noted in the pelvis. The uterus is not identified. The ovaries are not identified. No abnormal pelvic mass is present. No inguinal lymph node is identified. No acute bony fracture is noted. There are degenerative changes in both hips and in the thoracic and lumbosacral spine. No bone metastasis is noted. IMPRESSION: 1. There is aneurysmal dilatation of the root of the aorta which measured up to 6.5 cm transverse by 4 cm AP with a saccular aneurysm or pseudoaneurysm arising off the dorsal inferior wall of the root of the aorta. The abdominal aorta and its branches reveal no evidence of a aortic aneurysm or dissection. Atherosclerotic vascular disease is noted. 2. Atherosclerotic vascular disease which also involves the coronary arteries. 3. Calcified azygos lymph node which may be the result of a granulomatous process, perhaps TB. 4. No central or segmental pulmonary emboli. 5. Fatty infiltration of the liver which contains multiple lesions which appear to be cysts. Some are too small to characterize by CT and can be further investigated if clinically indicated with an ultrasound. 6. Cholelithiasis. 7. Status post hysterectomy and salpingo-oophorectomy. 8. Small midline umbilical hernia. 9. Diverticulosis of the sigmoid colon. No evidence of diverticulitis. 10. Osteoarthritis of the thoracic and lumbosacral spine. 11. Moderate size hiatal hernia which is unchanged. RPTAT:AAJJ Marshall Ernst Physician Date Time Electronically viewed and signed by Marshall Ernst Physician on 12/31/2016 15:24 JM/ CC: BERENICE GUERIN MD Hospital Course 68 years old obese female came in with upper abdominal pain that extended up to the frontal chest with some nausea. She vomited in the hospital once. CT scan and abdominal ultrasound show gallstones but no evidence of cholecystitis. Abdominal and nausea resolved. I recommend cholecystectomy that the patient declined. informed her the similar pain will likely happen again and that may give complications.LFTs are mildly elevated to AST/ALT/Alk phos 131/119/97 on and 87/59/91 on 01/02/2017. Follow up with PCP. Patient had a negative coronary angiography about two years ago with only about 40% lesion at that time. No further cardiac work up needed at this time. CT scan of chest ind a aortic root aneurysm with transverse diameter of 6.5 cm and AP diameter of 4 cm. I will have her follow up with her own vascular surgeon that she has an appointment with for this issue. Home Meds Active Scripts Levofloxacin* (Levaquin*) 250 Mg Tablet, 250 MG PO DAILY for 3 Days, TAB Prov:YULY HOPE MD 01/01/17 Reported Medications Verapamil Hcl* (Calan SR*) 120 Mg Tablet.sa, 120 MG PO DAILY, #30 TAB.SA 12/31/16 Levothyroxine Sodium* (Levothyroxine Sodium*) 100 Mcg Tablet, 100 MCG PO AC BREAKFAST, TAB 08/02/15 Discontinued Reported Medications Verapamil Hcl* (Calan SR*) 120 Mg Tablet.sa 07/08/10 Discontinued Scripts Acetaminophen* (Tylenol*) 325 Mg Tablet, 2 TAB PO Q8 Y for PAIN AND OR ELEVATED TEMP, #20 TAB Prov:BRENDON LOVELL MD 08/02/15 Follow-up Plan follow up with cardiothoracic surgery for elective aortic aneurysm repair PCP in one week cardiology Pending Labs Laboratory Tests Test 01/02/17 04:37 01/02/17 04:57 Sodium Level 142mmol/L (135-144) Potassium Level 4.2mmol/L (3.5-5.1) Chloride Level 104mmol/L (97-110) Carbon Dioxide Level 28mmol/L (21-31) Anion Gap 14 (8-16) Blood Urea Nitrogen 10mg/dl (7-20) Creatinine 0.78mg/dl (0.44-1.00) Glucose Level 100mg/dl (70-220) Calcium Level 9.0mg/dl (8.4-10.2) Total Bilirubin 1.1mg/dl (0.2-1.3) Direct Bilirubin 0.00mg/dl (0.00-0.20) Indirect Bilirubin 1.1mg/dl (0-1.1) Aspartate Amino Transf (AST/SGOT) 87IU/L (15-46) Alanine Aminotransferase (ALT/SGPT) 95IU/L (13-69) Alkaline Phosphatase 91IU/L (42-121) Total Protein 7.0g/dl (6.1-8.1) Albumin 3.6g/dl (3.3-4.9) Globulin 3.40g/dl (1.3-3.2) Albumin/Globulin Ratio 1.05 White Blood Count 5.910^3/ul (4.8-10.8) Red Blood Count 3.8110^6/ul (4.20-5.40) Hemoglobin 11.8g/dl (12.0-16.0) Hematocrit 35.1% (37.0-47.0) Mean Corpuscular Volume 92.1fl (82.0-101.0) Mean Corpuscular Hemoglobin 31.0pg (29.0-33.0) Mean Corpuscular Hemoglobin Concent 33.6g/dl (32.0-37.0) Red Cell Distribution Width 12.8% (11.5-14.5) Platelet Count 17607^3/UL (140-415) Mean Platelet Volume 9.5fl (7.4-10.4) Neutrophils % 59.7% (39.0-77.0) Lymphocytes % 30.5% (15.0-51.0) Monocytes % 6.8% (0.0-11.0) Eosinophils % 2.4% (0.0-7.0) Basophils % 0.3% (0.0-2.0) Nucleated Red Blood Cells % 0.0/100WBC (0.0-0.0) Neutrophils # 3.510^3/ul (1.6-7.5) Lymphocytes # 1.810^3/ul (0.8-2.9) Monocytes # 0.410^3/ul (0.3-0.9) Eosinophils # 0.110^3/ul (0.0-0.5) Basophils # 0.010^3/ul (0.0-0.1) Nucleated Red Blood Cells # 0.010^3/ul (0.0-0.0) YULY HOPE MD Jan 02, 2017 10:44
[2017-01-02] MEDS ORDERED: LEVO250T35 PO (10:51)
== END 2017-01-02 11:35 | disposition home or self-care (01) ==
LOC: E/R 07:21 → MS4 15:18 → UNDOADMIN 15:19 → MS4 20:17 → MS1 01-02 02:30
PROVIDERS: ADMIT Family Medicine; ATTEND Family Medicine
DX: R07.9 Chest pain, unspecified (principal); I71.2 Thoracic aortic aneurysm, without rupture; I10 Essential (primary) hypertension; R00.1 Bradycardia, unspecified; R94.31 Abnormal electrocardiogram [ECG] [EKG]; E03.9 Hypothyroidism, unspecified; I47.1 Supraventricular tachycardia; C55 Malignant neoplasm of uterus, part unspecified; G62.9 Polyneuropathy, unspecified; R79.89 Other specified abnormal findings of blood chemistry; K80.20 Calculus of gallbladder without cholecystitis without obstruction; N39.0 Urinary tract infection, site not specified; R10.10 Upper abdominal pain, unspecified; Z87.891 Personal history of nicotine dependence
CPT/HCPCS: 36415; 71010; 71275; 74176; 75635; 76705; 80048; 80053; 80061; 80076; 81001; 82550; 82553; 83036; 83690; 83735; 84439; 84443; 84484; 85025; 85610; 85730; 87081; 87086; 93005; 93306; 96361; 96365; 96366; 96374; 96375; 96376; 99285; G0378; J1170; J1885; J1956; J2405; J2765; J7030; J7042; Q9967; 81003; 99217

== ENCOUNTER 2017-12-29 13:13 | Inpatient (IN) | END 2018-01-06 19:05 | disposition home or self-care (01) | DRG 439 ==

== ENCOUNTER 2018-01-21 19:23 | Emergency (ER) | END 2018-01-21 21:40 | disposition left against medical advice (07) ==

== ENCOUNTER 2018-08-08 17:09 | Emergency (ER) | END 2018-08-08 19:50 | disposition home or self-care (01) ==